=== PATIENT | male | born 1935 | race Caucasian/White ===

== ENCOUNTER 2019-08-30 18:33 | Inpatient (IN) | payer OTHER ==
[~2019-08-30] VITALS: Ht 165.1 cm; Wt 62.6 kg
--- NOTE | 2019-08-30 19:30 | NUR ---
PT CAME IN WITH COMPAINTS OF PAIN TO HIS ENTIRE LEFT LOWER EXTREMITY. PT STATED THAT YESTERDAY HE TRIED STANDING UP OUTSIDE, AND THE WIND KNOCKED HIM OVER, FALLING ON HIS BACK. HIS LEFT LOWER EXTREMITY IS SWOLLEN AND WARM. CAP REFILL <3 SECS. PT C/O 08/29 PAIN, STATES THAT HE IS HARDLY ABLE TO WALK AFTER THE FALL.
--- NOTE | 2019-08-30 20:37 | NUR ---
CHECKED BACK WITH PATIENT. STATED THAT PAIN IS RELIEVED AT THIS TIME. WILL CONTINUE TO MONITOR.
[2019-08-30 20:38] LABS: CALCIUM 8.6 mg/dL (8.5-10.1); CARBON DIOXIDE 24.8 mmol/L (21-32); CHLORIDE SERUM 108 mmol/L (98-107); CREATININE SERUM 1.2 mg/dL (0.7-1.3); GLUCOSE SERUM 107 mg/dL (74-106); POTASSIUM SERUM 4.1 mmol/L (3.5-5.1); SODIUM SERUM 143 mmol/L (136-145)
[2019-08-30 20:54] LABS: BASOPHIL % 0.3 % (0-2)
[2019-08-30 21:03] LABS: PLATELET COUNT 129 x10^3mcL (130-400); RED CELL DISTRIBUTION WIDTH 15.5 % (11.5-14.5)
--- NOTE | 2019-08-30 21:19 | NUR ---
EMT AT BEDSIDE FOR SPLINT PLACEMENT.
--- NOTE | 2019-08-30 21:56 | NUR ---
DR. RODRÍGUEZ AT BEDSIDE TO TALK TO PT ABOUT ADMISSION FOR OBSERVATION. PT UNDERSTANDS, AND AGREES TO BE ADMITTED.
[2019-08-30] MEDS ORDERED: ELIQUIS2.5 MG PO (22:19)
--- NOTE | 2019-08-30 22:19 | NUR ---
ATTEMPTED TO GET MEDICATION RECONCILIATION, BUT PT UNABLE TO REMEMBER THE NAMES OF HIS MEDICATIONS, AND THERE IS NO ONE HOME TO PROVIDE THIS INFORMATION.
[2019-08-30] MEDS ORDERED: CARVEDILOL3.125 M1 PO (22:22)
--- NOTE | 2019-08-30 22:22 | NUR ---
PT'S BELONGINGS, INCLUDING WALLET, WILL BE GOING HOME WITH FAMILY MEMBER. PT IS AWARE.
--- NOTE | 2019-08-30 22:58 | NUR ---
PROVIDED REPORT TO PIOTR BAUMANN. ALL QUESTIONS AND CONCERNS ANSWERED.
--- NOTE | 2019-08-30 23:35 | NUR ---
GOT A VERBAL OKAY FROM TO TRANSFER PATIENT UPSTAIRS. ALL QUESTIONS ANSWERED. FAMILY MEMBER AT BEDSIDE. BELONGINGS AND MEDICATIONS RECONCILIATION COMPLETED.
[2019-08-31 00:56] VITALS: BP 167/80
--- NOTE | 2019-08-31 03:54 | NUR ---
Pt. received from ER via matt with accompanying RN. Family is also at bedside upon admission to the floor. Pt. is a/o x4, able to make most needs known, a good historian, and is able to make conversation. Pt. M/s has h(x) of heart murmur as per pt. , no edema noted, pulses palpable minus the Left pedal pulse d/t splint and dressing on Left leg. Pt. has no c/o of pain or tingling. Pt. skin noted to have scabbing noted on Left hand and on nose. Pt. has no c/o pain other than when being repositioned and has an IV on LAC that is saline locked. Pt. lives at home with son and is the place where pt. fell. Call light placed within reach, bed set at lowest position, will continue to monitor.
--- NOTE | 2019-08-31 05:44 | NUR ---
Pt. currently resting in bed, able to make most needs known, able to communicate freely. Pt. family was at bedside last night upon admission and needs have been anticipated and met. Pt. educated on use of call light system, bedside control, and safety precautions. Pt. has been able to tolerate 2 cups of water and has a urine output of 100mL that is clear and edwin. Pt. has no c/o of pain at the moment, denies need to be repositioned, and is currently resting on an air mattress. Pt. call light has been placed within reach, bed set at lowest position, and will continue to monitor.
[2019-08-31 06:42] VITALS: BP 148/82
--- NOTE | 2019-08-31 07:40 | NUR ---
RECEIVED PATIENT RESTING IN BED, PATIENT DENIES PAIN, STATES HIS PAIN INCREASES WITH MOVEMENT. PATIENT A/OX3, DENIES HEADACHE AND DIZZINESS. PATIENT VOIDS FREELY. GENERALIZED WEAKNESS NOTED, LIMITED ROM TO LEFT LOWER EXTREMITY. SPLINT PLACED ON LLE, UNABLE TO ASSESS PULSES. PATIENT UNDERSTANDS TO MAINTAIN LLE ELEVATED WITH PILLOW, PATIENT VERBALIZES UNDERSTANDING. CALL LIGHT WITHIN REACH, BED IN LOW POSITION, WILL CONTINUE TO MONITOR.
[2019-08-31 07:56] VITALS: BP 145/92
--- NOTE | 2019-08-31 13:32 | NUR ---
PATIENT STATED HE WAS HAVING TROUBLE PASSING A BM, PATIENT REQUESTED FOR STOOL SOFTNER, CLOACE PO GIVEN AT THIS TIME(SEE EMAR).
[2019-08-31 16:33] VITALS: BP 137/84
--- NOTE | 2019-08-31 16:44 | NUR ---
PATIENT WAS C/O OF MODERATE PAIN 04/29 TO LLE, MEDICATED PATIENT WITH NORCO PER PROTOCOL (SEE EMAR). FAMILY AT BEDSIDE, ALL QUESTIONS AND CONCERNS ADDRESSED. CALL LIGHT WITHIN REACH, BED IN LOW POSITION. WILL CONTINUE TO MONITOR.
--- NOTE | 2019-08-31 18:00 | NUR ---
PATIENT RESTING IN BED, NO ACUTE DISTRESS NOTED. LEFT LOWER EXTREMITY ELEVATED. PATIENT DENIES PAIN. NO RESPIRATORY DISTRESS NOTED, PATIENT DENIES SOB. ALL NEEDS MET AT THIS TIME. IV TO RAC SALINE LOCK, NO S/S OF INFILTRATION. CALL LIGHT WITHIN REACH, BED IN LOW POSITION.
--- NOTE | 2019-08-31 20:32 | NUR ---
Received pt. from day shift resting in bed. Pt. is able to make needs known, is a/o x4, able to hold conversation well, is able to use urinal without assistance, educated pt. on safety measures and trying to stay in the middle of the bed. Pt. also taught [employer] light system, education reinforced to ensure pt. safety, call light placed within reach, bed set at lowest position, will continue to monitor.
[2019-08-31 21:00] VITALS: BP 130/80
[2019-08-31 23:34] LABS: BASOPHIL % 0.4 % (0-2); PLATELET COUNT 234 x10^3mcL (130-400)
[2019-08-31 23:50] LABS: RED CELL DISTRIBUTION WIDTH 14.8 % (11.5-14.5)
[2019-09-01 00:01] LABS: CALCIUM 8.6 mg/dL (8.5-10.1); CARBON DIOXIDE 29.2 mmol/L (21-32); CHLORIDE SERUM 105 mmol/L (98-107); CREATININE SERUM 1.2 mg/dL (0.7-1.3); GLUCOSE SERUM 98 mg/dL (74-106); POTASSIUM SERUM 4.3 mmol/L (3.5-5.1); SODIUM SERUM 141 mmol/L (136-145)
[2019-09-01 05:32] VITALS: BP 132/84
--- NOTE | 2019-09-01 07:40 | NUR ---
RECEIVED PATIENT SITTING AT BEDSIDE. PATIENT C/O SOME DISCOMFORT TO LLE, ASSISTED PATIENT BACK INTO BED AND REPOSITION FOR COMFORT. PATIENT STATED DISCOMFORT WAS TOLERABLE, INSTRUCTED PATIENT USE CALL LIGHT IF ASSISTANCE IS NEEDED. PATIENT VERBALIZED UNDERSTANDING. PATIENT A/O X4, DENIES HEADACHE. PATIENT HAS NOTED WEAKNESS TO LEFT SIDE, PATIENT HAS HX OF 2 STROKES. PATIENT DENIES SOB, ON ROOM AIR, LUNG SOUNDS CTA. UNABLE TO ASSES PULSES TO LLE DUE TO SPLINT, PATIENT ABLE TO TO MOVE TOES. SENSATION TO LLE WNL. ALL NEEDS MET AT THIS TIME. WILL CONTINUE TO MONITOR FOR CHANGES, CALL LIGHT WITHIN REACH.
[2019-09-01 09:10] VITALS: BP 134/86
--- NOTE | 2019-09-01 12:23 | NUR ---
PATIENT RESTING IN BED COMFORTABLY, NO ACUTE DISTRESS NOTED. PATIENT DENIES PAIN AT THIS TIME. PATIENT AWAITING FOR LUNCH TRAY. ALL NEEDS MET AT THIS TIME. CALL LIGHT WITHIN REACH, WILL CONTINUE TO MONITOR & MANAGE PAIN.
[2019-09-01] MEDS ORDERED: ACETAMINOPHEN-H1 TA1 PO (15:03)
--- NOTE | 2019-09-01 15:24 | NUR ---
DR. MOODY AWARE PATIENTS MAG WAS 1.7, DR AYOUB STATED HE WILL REVIEW ORDERS. NO FURTHER ORDERS AT THIS TIME.
--- NOTE | 2019-09-01 15:41 | NUR ---
PATIENT HAS ORDER TO BE TRANSFERRED TO SNF FOR PT. SPOKE WITH KAMINI AND INFORMED HER ABOUT THE ORDER AND THE FACT THE PT EVAL IS NOT DONE YET. PER KAMINI TO WAIT FOR PT EVAL BEFORE FAXING THE ORDER TO INSURANCE. ATTENDING NURSE BG MADE AWARE.
[2019-09-01 17:06] VITALS: BP 113/64
--- NOTE | 2019-09-01 18:22 | NUR ---
PATIENT RESTING IN BED COMFORTABLY, PATIENT DENIES PAIN. NO ACUTE DISTRESS NOTED. PATIENT DENIES SOB, ON ROOM AIR. SPLINT DRESSING IN PLACE. IV TO RAC SALINE LOCK, IV SITE CDI&PATENT. CALL LIGHT WITHIN REACH, BED IN LOW POSITION, WILL CONTINUE TO MONITOR & ENDORSE REPORT.
[2019-09-01 20:32] VITALS: BP 125/75
--- NOTE | 2019-09-01 22:26 | NUR ---
Pt. received from morning shift, currently in bed resting. Pt. c/o of pain 05/29, throbbing in L Leg. Pt a/o x4, able to make needs known, able to follow commands. Pt. requesting for pain medicine so that he could sleep. Will medicate pt. as ordered on EMAR. Call light placed within reach, bed set at lowest position, will continue to monitor.
[2019-09-02 04:43] VITALS: BP 141/77
--- NOTE | 2019-09-02 05:28 | NUR ---
Pt. currently resting in bed and asleep throughout shift, but easily arousable using verbal stimuli. Pt. needs have been anticipated and met throughout shift. Pt. Coreg (Carvedilol) was held last night d/t low HR of 59, other lilly pt. vs has been stable. Pt. c/o of pain at the beginning of shift, medicated as orders prescribed, otherwise no c/o of pain throughout the rest of the shift. Pt. safety in chech with call light placed within reach, bed set at loweset position, educated pt. on using call light if needing assitance to use urinal or to empty the urinal, bed set at lowest position, will continue to monitor.
--- NOTE | 2019-09-02 09:12 | NUR ---
ADMINISTERED MEDICATION PER MAR. PATIENT AWAKE AND ALERT, SITTING UP AND EATING A THIS TIME. NO COMPLAINTS OF PAIN. PATIENT AWARE OF PLAN TO DISCHARGE TO [facility] FOR PHYSICAL THERAPY. AWAITING VISITON FROM PT TODAY. CALL LIGHT WITHIN REACH
[2019-09-02 10:41] VITALS: Ht 165.1 cm; Wt 62.6 kg
--- NOTE | 2019-09-02 12:45 | NUR ---
DR LUDWIG WAS INFORMED THAT HE WAS CONSULTED ON THIS PATIENT. VISITED PATIENT AND PATIENT AGREED TO LONG LEG CAST OF THE LEFT LEG. ASSISTED DR GRULLON IN APPLICATION OF FIBERGLASS CAST. PATIENT MEDICATED WITH MORPHINE 2MG AFTER PROCEDURE PER DR GRULLON ORDER. NEW IV STARTED, 22G TO LEFT FORARM, FUSHING WELL. REPOSITIONED PATIENT, NEW ORDER FOR PT EVALUATION. LEFT LEG WILL BE NON-WEIGHT BEARING, PENDING DISCHARGE TO SNF FOR REHABILITATION THERAPY
--- NOTE | 2019-09-02 14:14 | NUR ---
RECHEKED BLOOD PRESSURE, 156/86. PATIENT STILL REFUSING NITRO STATING HE JSUT WANTS TO REST. WILL CONTINUE TO MONITOR. PAIN 02/27
[2019-09-02 16:39] VITALS: BP 112/84
--- NOTE | 2019-09-02 18:08 | NUR ---
PATIENT COMPLAINING OF 10/10 PAIN, VSS. ADMINISTERED MEDICAITON PER MAR. WILL REASSESS, FAMILY AT BEDSIDE AWARE OF PLAN OF CARE
--- NOTE | 2019-09-02 18:33 | NUR ---
PATIENT PAIN LEVEL IMPROVING AT THIS TIME
--- NOTE | 2019-09-02 19:40 | NUR ---
RECEIVED PT FROM AM NURSE, PT LAYING DOWN IN BED. PT AAOX4, ABLE TO MAKE NEEDS KNOWN. MED-SURG, DENIES CP/PRESSURE AT THIS TIME. PALPABLE PULSES ALL EXTREMETIES. EDEMA NOTED TO LLE. LUNG SOUNDS CTA, BREATHING EVEN AND UNLABORED ON RA. NO ACUTE DISTRESS NOTED. ABD SOFT AND NONDISTENDE, ACTIVE BS X4 QUAD. DENIES N/V/D. LAST BM 09/02/19. VOIDS FREELY ON URINAL. 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 CAST TO LLE IN PLACE. LLE ELEVATED ON PILLOWS. NWB TO LLE. SCABS TO LH AND LEFT SIDE OF NOSE. IV TO LFA FLUSHING WELL. SITE WNL. BED AT LOWEST SETTING. SIDE RAILS X2 UP. CALL LIGHT WHITHING REACH. WILL CONTINUE TO MONITOR.
[2019-09-02 20:37] VITALS: BP 107/81
--- NOTE | 2019-09-02 22:32 | NUR ---
PT HAVING A HIGH TEMP 101.1, COOLING MEASURES IN PLACE. MEDICATED WITH TYLENOL PER JAN. C/O 04/29 PAIN AT LLE, MEDICATED WITH PRN NORCO PER JAN. CURRENT TEMP 99.7. NO ACUTE DISRESS NOTED. WILL CONTINUE TO MONITOR.
--- NOTE | 2019-09-03 00:07 | NUR ---
PT LAYING DOWN IN BED WITH EYES CLOSED, BREATHING EVEN AND UNLABORED ON RA. NO NO ACUTE DISTRESS NOTED. LEFT LEG ELEVATED ON PILLOWS. BED AT LOWEST SETTING. SIDE RAILS X2 UP. CALL LIGHT WHITHING REACH. WILL CONTINUE TO MONITOR.
--- NOTE | 2019-09-03 05:24 | NUR ---
PT SLEPT WELL THROUGHOUT THE NIGHT. BREATHING EVEN AND UNLABORED ON RA. NO SIGNIFICANT CHANGES DURING SHIFT. LLE REMAINS ELEVATED ON PILLOWS. ALL NEEDS ASSESSED AND ATTENDED TO. NO ACUTE DISTRESS NOTED. BED AT LOWEST SETTING. SIDE RAILS X2 UP. CALL LIGHT WITHING REACH. WILL ENDORSE CARE TO AM NURSE.
[2019-09-03 06:29] VITALS: BP 109/73
--- NOTE | 2019-09-03 07:20 | NUR ---
RECEIVED PATIENT AWAKE/ALERT IN BED NO DISTRESS NOTED, NO C/O PAIN AT THIS TIME. IV TO LFA INTACT AND SL NOTED. NEEDS MET. CALL LIGHT AND URINAL WITHIN REACH.
--- NOTE | 2019-09-03 09:33 | NUR ---
PATIENT RESTING IN BED WATCHING TV, ALL PO MEDS AND NORCO 1 TAB PO GIVEN, C/O LLE PAIN 06/29. ASSISTING ELEVATED LLE ON PILLOW. NEEDS MET. CONT TO MONITOR. CALL LIGHT WITHIN REACH.
[2019-09-03 09:36] VITALS: BP 116/65
--- NOTE | 2019-09-03 09:36 | NUR ---
HEPARIN 5000 UNITS SQ INJECTED TO LT ABDOMEN. PATIENT TOLERATED NO COMPLAIN.
--- NOTE | 2019-09-03 13:15 | NUR ---
DR. AYOUB SEEN PATIENT AND UPDATE TRANSFER PER CM KAMINI SNF PLACEMENT IN [facility] STILL WAITING FOR ACCEPTED.
--- NOTE | 2019-09-03 15:42 | NUR ---
MEDICATED PATIENT FOR LLE PAIN 04/29 WITH NORCO 1 TAB PO, PATIENT RESTING IN BED WATCHING TV, LLE ELEVATED ON PILLOW. CALL LIGHT WITHIN REACH.
[2019-09-03 16:17] VITALS: BP 116/65
[2019-09-03 16:19] VITALS: BP 153/75
--- NOTE | 2019-09-03 18:35 | NUR ---
CALL [facility] AT [phone]; GAVE REPORT TO ELENA NAJERA. PATIENT WILL BE PRODUCTION INTERN AT 7PM.
--- NOTE | 2019-09-03 19:08 | NUR ---
PT RECEIVED A/O X4, ABLE TO MAKE NEEDS NEEDS KNOWN. MED-SURG, DENIES ANY CP/PRESSURE. PULSES PALPABLE, MINIMAL SWELLING NOTED TO LLE. BREATHING IS EVEN AND UNLABORED ON RA, PT DENIES ANY SOB, NO RESP OBSERVED. ABD SOFT AND NONDISTENDED, BOWEL TONES ACTIVE X4 QUAD, DENIES ANY N/V. VOIDS FREELY, URINAL AT BEDSIDE. GENERALIZED WEAKNESS, NWB TO LLE. CAST NOTED TO LLE, CDI. PT ABLE TO WIGGLE TOES AND FEEL SENSATION TO LLE. PT DENIES HAVING ANY PAIN AT THIS TIME. NO IV ACCESS PRESENT, IV DC'd BY AM NURSE. PT PENDING TRANSFER TO [facility], REPORT GIVEN BY KAMINI SALDAÑA. AWAITING TRANSPORT BY [facility] AT [phone]. ALL BELONGINGS GATHERED. PT IN NO ACUTE DISTRESS. BED IN LOWEST SETTING, SIDE RAILS UP X2, CALL LIGHT WITHIN REACH. WILL CONT TO MONITOR.
--- NOTE | 2019-09-03 19:20 | NUR ---
[facility] ARRIVED AT THIS TIME. REPORT AND PAPERWORK GIVEN TO TRANSPORT TEAM, ALL QUESTIONS AND CONCERNS ADDRESSED.
--- NOTE | 2019-09-03 19:30 | NUR ---
PT DISCHARGED TO [facility] IN NO ACUTE DISTRESS VIA GURNEY ACCOMPANIED BY [facility]. ALL PAPERWORK AND BELONGINGS LEFT WITH PT.
== END 2019-09-03 19:32 | DRG 563 ==
LOC: ED 18:33 → MU 22:13
PROVIDERS: Emergency Medicine; ADMIT Internal Medicine Pulmonary Disease
PROC: 2W3MX2Z Immobilization of Left Lower Extremity using Cast (ICD-10-PCS; principal; 2019-09-02)
DX: S82.202A Unspecified fracture of shaft of left tibia, initial encounter for closed fracture (principal); I10 Essential (primary) hypertension; R54 Age-related physical debility; Z79.01 Long term (current) use of anticoagulants; Z86.73 Personal history of transient ischemic attack (TIA), and cerebral infarction without residual deficits; Z68.28 Body mass index [BMI] 28.0-28.9, adult; Y93.H9 Activity, other involving exterior property and land maintenance, building and construction; Y99.8 Other external cause status; W01.0XXA Fall on same level from slipping, tripping and stumbling without subsequent striking against object, initial encounter; Y92.017 Garden or yard in single-family (private) house as the place of occurrence of the external cause
CPT/HCPCS: 97110-GP; 97116-GP; 97530-GP; G0378; J1644; J2270; Q0092